=== PATIENT | female | born 1995 | race Caucasian/White ===

== ENCOUNTER 2022-05-16 23:23 | Emergency (ER) | payer BC ==
[~2022-05-16] VITALS: Ht 170.2 cm; Wt 87.0 kg
[2022-05-16 23:23] VITALS: BP 116/78
[2022-05-17] MEDS ORDERED: IBUPROFEN 800 MG TAB PO ONE (04:15)
[2022-05-17] MEDS ORDERED: DICL1GEL50 TD (04:17)
[2022-05-17] MEDS ORDERED: IBUP800T26 PO (04:17)
== END 2022-05-17 04:44 | disposition home or self-care (01) ==
LOC: ER 23:23
DX: S60.415A Abrasion of left ring finger, initial encounter (principal); S60.413A Abrasion of left middle finger, initial encounter; X58.XXXA Exposure to other specified factors, initial encounter; Y93.89 Activity, other specified; Y92.89 Other specified places as the place of occurrence of the external cause; Y99.8 Other external cause status
CPT/HCPCS: 73130